=== PATIENT | female | born 1995 | race Caucasian/White ===

== ENCOUNTER 2019-03-04 09:52 | Emergency (ER) | payer OTHER ==
[2019-03-04 10:00] VITALS: BP 138/83
[2019-03-04] MEDS ORDERED: LIDOCAINE 2%-EPI 1:100000 20 ML MDV SUBQ STA (10:07)
--- NOTE | 2019-03-04 10:12 | ED Physician Documentation ---
History of Present Illness - Stated complaint Stated Complaint: DOG BITE RT LEG AND RT FINGER - Chief complaint Chief Complaint: Laceration - History obtained from History obtained from: Patient, Family - History of Present Illness Timing: How many hours ago (1) Pain level max: 5 Pain level now: 4 Improved by: nothing Worsened by: nothing - Additonal information Additional information: dog bite to the R LE. 2 dogs that were fighting. Td UTD. Dogs v accinations are UTD. nothing makes it better or worse Review of Systems Constitutional: denies: Fever, Chills GI: denies: Vomiting Skin: denies: Rash PD PAST MEDICAL HISTORY - Past Medical History Past Medical History: No - Past Surgical History Past Surgical History: No - Present Medications Home Medications: Ambulatory Orders Medication Instructions Recorded Confirmed Amox/Clav 875/125 [Augmentin] 1 each PO Q12H #20 tablet 03/04/19 - Allergies Allergies/Adverse Reactions: Allergies Allergy/AdvReac Type Severity Reaction Status Date / Time No Known Drug Allergies Allergy Verified 03/04/19 10:00 - Social History Does the pt smoke?: No Smoking Status: Never smoker Does the pt drink ETOH?: No Does the pt have substance abuse?: No - Immunizations Immunizations are current?: Yes PD ED PE NORMAL - Vitals Vital signs reviewed: Yes - General General: Alert and oriented X 3, No acute distress - HEENT HEENT: Moist mucous membranes - Cardiac Cardiac: RRR - Respiratory Respiratory: No respiratory distress, Clear bilaterally - Derm Derm: Warm and dry - Extremities Extremities: Other (R LE - multiple abrasions, but 3 gaping lacerations. NVI. lacerations are all approx 3cm long and 1 cm open. R index finger nail is cracked. no laceration. ) - Neuro Neuro: Alert and oriented X 3 Results - Vitals Vitals: Vital Signs - 24 hr 03/04/19 09:58 Temperature 36.8 C Heart Rate 115 H Respiratory 18 Rate Blood Pressure 138/83 H O2 Saturation 99 Oxygen O2 Source Room air Procedures - Laceration (location) R leg 3 lacerations Length in cm: 9 Wound type: Linear, Into subcut fat, Clean Neurovascular status: Sensory intact, Motor intact, Vascular intact Anesthesia: Lidocaine 2% Wound Preparation: Irrigated copiously NS Skin layer closure: Nylon, Interrupted, Size #-0 - enter number (4) Other: Patient tolerated well, No complications, Neurovascular intact, Dressing applied, Tetanus UTD Complexity: Simple PD MEDICAL DECISION MAKING - ED course Complexity details: reviewed results, re-evaluated patient, considered differential, d/w patient ED course: 23-year-old female status post dog bite this morning. Lacerations repaired. Tolerated well. Dermabond was applied to the broken nail. We will allow this to grow out. Will place on Augmentin for home. Warnings of infection and instructions on wound care given at bedside. Also counseled on how to minimize scarring. Patient counseled regarding signs and symptoms for which I believe and urgent re-evaluation would be necessary. Patient with good understanding of and agreement to plan and is comfortable going home at this time This document was made in part using voice recognition software. While efforts are made to proofread this document, sound alike and grammatical errors may occur. Departure - Departure Disposition: 01 Home, Self Care Clinical Impression: Laceration Dog bite Qualifiers: Encounter type: initial encounter Qualified Code(s): W54.0XXA - Bitten by dog, initial encounter Condition: Good Instructions: ED Bite Animal General, ED Laceration Ext Sutr Stap Tape Follow-Up: your,doctor in in 10 days for suture removal [Other] Prescriptions: Amox/Clav 875/125 [Augmentin] 1 each PO Q12H #20 tablet Comments: Take all antibiotics until gone. Return if you worsen. Follow-up with your doctor for further care. Return if you notice redness, swelling or drainage from the wound. The sutures should be removed in 10 to 14 days. Discharge Date/Time: 03/04/19 12:01
== END 2019-03-04 12:01 | disposition home or self-care (01) ==
LOC: ED 09:52
DX: S81.851A Open bite, right lower leg, initial encounter (principal); S61.310A Laceration without foreign body of right index finger with damage to nail, initial encounter; W54.0XXA Bitten by dog, initial encounter; Y93.89 Activity, other specified
CPT/HCPCS: 12004; 99283